=== PATIENT | male | born 1980 | race Caucasian/White ===

== ENCOUNTER 2023-01-10 17:51 | Outpatient (CLI) | payer MEDICAID | END 2023-01-10 17:52 | disposition critical access hospital (66) | LOC: EMS 17:51 | DX: R53.83 Other fatigue (principal); R51.9 Headache, unspecified; R10.9 Unspecified abdominal pain; R45.1 Restlessness and agitation; Z72.89 Other problems related to lifestyle | CPT/HCPCS: A0425; A0429; A0999 ==

== ENCOUNTER 2023-01-10 18:18 | Emergency (ER) | payer MEDICAID ==
--- NOTE | 2023-01-10 20:38 | ED Physician Documentation ---
PD HPI FEVER - Stated complaint Stated Complaint: FEVER, CLEARANCE FOR DETOX - Chief complaint Chief Complaint: Fever - History obtained from History obtained from: Patient, Other - Additional information Additional information: Patient is brought in by ambulance. I was not yet on duty when patient was brought in, thus I was not present when EMS gave report. HPI is from ED nurse who did receive EMS report. I also contacted staff at [facility] and majority of HPI is from the staff member I spoke with. She says that patient was checking in to [facility] today for drug and alcohol rehab but found to have fever 101.2, unknown source. He was thus sent to this ED for evaluation of fever and , if possible and appropriate, medical clearance to return to [facility]. The person I spoke with says she did not evaluate patient in person but was shown picture of multiple skin lesions on his body. Patient contributes to HPI, although answers are brief and he repeatedly returns to request for soda and a sandwich, and says he will need a taxi ride back to [facility]. Patient says he wants to detox from alcohol (last drink was yesterday evening) and methamphetamines (smokes, last use last night). He says the skin lesions have been present for many years and have been diagnosed as psoriasis. Review of Systems Constitutional: reports: Fever. denies: Chills, Myalgias, Sweats Throat: denies: Sore throat Respiratory: denies: Dyspnea, Cough GI: denies: Abdominal Pain, Nausea, Vomiting Skin: reports: Rash Neurologic: denies: Headache PD PAST MEDICAL HISTORY - Past Medical History Derm: Psoriasis - Present Medications Home Medications: Ambulatory Orders Medication Instructions Recorded Confirmed Doxycycline [Vibramycin] 100 mg PO BID #14 tablet 01/10/23 - Allergies Allergies/Adverse Reactions: Allergies Allergy/AdvReac Type Severity Reaction Status Date / Time No Known Drug Allergies Allergy Verified 01/10/23 18:20 - Social History Does the pt drink ETOH?: Yes Substance Use and Type: Meth PD ED PE NORMAL - Vitals Vital signs reviewed: Yes - General General: No acute distress, Other (dissheveled , poor eye contact. he is oriented x 3 but fixated on request for soda and food) - HEENT HEENT: Moist mucous membranes, Pharynx benign - Neck Neck: Supple, no meningeal sign - Cardiac Cardiac: RRR, No murmur - Respiratory Respiratory: No respiratory distress, Clear bilaterally - Abdomen Abdomen: Soft, Non tender PD ED PE EXPANDED - Derm Derm: Other (mutiple plaques on BUE, chest, abdomen c/w psoriasis. there are a few lesions on upper abdomen that have pustules and mild surrounding cellulitis) Results - Vitals Vitals: Vital Signs - 24 hr 01/10/23 01/10/23 18:20 22:15 Temperature 36.7 C 38.0 C H Heart Rate 82 110 H Respiratory 16 14 Rate Blood Pressure 132/74 H 109/68 O2 Saturation 100 97 Oxygen O2 Source Room air - Labs Labs: Laboratory Tests 01/10/23 20:31 Nasal Adenovirus (PCR) NOT DETECTED Nasal B. parapertussis DNA (PCR) NOT DETECTED Nasal Coronavir 229E PCR NOT DETECTED Nasal Coronavir HKU1 PCR NOT DETECTED Nasal Coronavir NL63 PCR NOT DETECTED Nasal Coronavir OC43 PCR NOT DETECTED Nasal Enterovir/Rhinovir PCR NOT DETECTED Nasal Influenza B PCR NOT DETECTED Nasal Influenza A PCR NOT DETECTED Nasal Parainfluen 1 PCR NOT DETECTED Nasal Parainfluen 2 PCR NOT DETECTED Nasal Parainfluen 3 PCR NOT DETECTED Nasal Parainfluen 4 PCR NOT DETECTED Nasal RSV (PCR) NOT DETECTED Nasal B.pertussis DNA PCR NOT DETECTED Nasal C.pneumoniae (PCR) NOT DETECTED Boom Human Metapneumo PCR NOT DETECTED Nasal M.pneumoniae (PCR) NOT DETECTED Nasal SARS-CoV-2 (PCR) NOT DETECTED PD Medical Decision Making - ED course Complexity details: reviewed results, re-evaluated patient, considered differential, d/w patient ED course: Patient is in no acute/apparent distress. He is asleep each time that I evaluate/reevaluate him, awakens easily to voice. In trying to ascertain possible source of fever, review of systems does not yield/suggest a likely source. He does have multiple psoriatic lesions on his body, but only few of these have pustules which are very small, and there is mild focal surrounding cellulitis surrounding a few of these lesions. I will start the patient on a course of antibiotic to treat what appears to be early infected psoriatic lesions. Respiratory PCR panel is negative for viruses tested on this panel. Departure - Departure Disposition: 01 Home, Self Care Clinical Impression: Cellulitis Condition: Good Instructions: ED Infec Skin Cellulitis Prescriptions: Doxycycline [Vibramycin] 100 mg PO BID #14 tablet Comments: The source of your fever is not apparent at this time, although few of the psoriasis lesions on your abdomen do appear to be in the early stages of infection. Because of this finding, you were given a dose of an antibiotic (doxycycline) in the emergency department, and a prescription for a 1 week course of this antibiotic has been electronically submitted to [facility] in [place]. Discharge Date/Time: 01/10/23 22:23
[2023-01-10] MEDS ORDERED: DOXYCYCLINE 100 MG TABLET PO STA (20:46)
[2023-01-10 21:27] LABS: B. PARAPERTUSSIS- RESP PCR PAN NOT DETECTED; B. PERTUSSIS- RESP PCR PANEL NOT DETECTED; C. PNEUMONIAE- RESP PCR PANEL NOT DETECTED; CORONAVIRUS 229E-RESP PCR NOT DETECTED; CORONAVIRUS HKU1-RESP PCR NOT DETECTED; CORONAVIRUS NL63-RESP PCR NOT DETECTED; CORONAVIRUS OC43-RESP PCR NOT DETECTED; HUMAN METAPNEUMOVIRUS NOT DETECTED; INFLUENZA A- RESP PCR PANEL NOT DETECTED; INFLUENZA B - RESP PCR PANEL NOT DETECTED; M. PNEUMONIAE- RESP PCR PANEL NOT DETECTED; PARAINFLUENZA VIRUS 1 NOT DETECTED; PARAINFLUENZA VIRUS 2 NOT DETECTED; PARAINFLUENZA VIRUS 3 NOT DETECTED; PARAINFLUENZA VIRUS 4 NOT DETECTED; RHINOVIRUS/ENTEROVIRUS NOT DETECTED; RSV- RESP PCR PANEL NOT DETECTED; SARS-CoV-2 -RESP PCR PANEL NOT DETECTED
[2023-01-10 22:16] VITALS: BP 109/68
[2023-01-10] MEDS ORDERED: ACETAMINOPHEN 325 MG TABLET PO STA (22:16)
== END 2023-01-10 22:23 | disposition home or self-care (01) ==
LOC: ED 18:18
DX: L03.90 Cellulitis, unspecified (principal); Z20.822 Contact with and (suspected) exposure to COVID-19
CPT/HCPCS: 87633; 99283; A9270